=== PATIENT | female | born 1970 | race Caucasian/White ===

== ENCOUNTER 2016-11-17 06:43 | Day surgery (SDC) | payer OTHER ==
[2016-11-12 09:17] LABS: HEMATOCRIT 39.1 % (36.0-48.0); HEMOGLOBIN 12.1 g/dL (12.0-16.0)
[2016-11-12 09:31] LABS: A/G RATIO 1.2 (0.7-1.9); ALBUMIN 4.1 G/DL (3.5-5.0); ALKALINE PHOSPHATASE 96 U/L (45-117); CALCIUM, SERUM 9.4 MG/DL (8.5-10.4); CHLORIDE, SERUM 108 MMOL/L (96-112); CO2 (CARBON DIOXIDE) 30 MMOL/L (24-34); CREATININE 0.68 MG/DL (0.55-1.02); GFR AFRICAN AMERICAN 122 ML/MIN (>=60); GFR NON AFRICAN AMERICAN 106 ML/MIN (>=60); GLOBULIN 3.3 G/DL (2.5-4.1); GLUCOSE, SERUM 78 MG/DL (60-99); POTASSIUM, SERUM 4.9 MMOL/L (3.5-5.3); SGOT(AST) 18 U/L (5-40); SGPT(ALT) 26 U/L (5-65); SODIUM, SERUM 143 MMOL/L (135-148); TOTAL BILIRUBIN 0.5 MG/DL (0-1.2); TOTAL PROTEIN 7.4 G/DL (6.0-8.5)
[2016-11-12 09:35] LABS: BUN (BLOOD UREA NITROGEN) 9 MG/DL (6-23)
--- NOTE | ~2016-11-17 | OP ---
Record Of Operation [facility] [address] [place]. [address] NAME: LINA EASLEY : 72 [place]US : [place] [facility] [place] PAT#: [id number] AGE: 46 ADM/REG DATE : 11/17/16 MR#: [id number] REPORT SERV DATE: 11/17/16 DICTATED BY: RAYMUNDO PANIAGUA DATE: 11/17/16 REPORT STATUS : Draft TRANSCRIBED BY: MODL DATE: 11/17/16 DATE OF PROCEDURE: 11/17/2016 PREOPERATIVE DIAGNOSIS: Chronic cholecystitis and cholelithiasis. POSTOPERATIVE DIAGNOSIS: Chronic cholecystitis and cholelithiasis. PROCEDURE: Laparoscopic cholecystectomy (two-site). SURGEON: Raymundo Paniagua M.D. DESCRIPTION OF PROCEDURE: The patient was brought to the operating suite, placed in supine position, underwent satisfactory general endotracheal anesthesia without incident. The skin of the abdomen was scrubbed, prepped, and draped in usual sterile fashion. 0.5% Marcaine with epinephrine was utilized as supplemental local anesthesia at intended trocar sites. Initially, an infraumbilical incision was performed, dissecting through skin and subcutaneous tissue to the umbilical fascia. This was in turn grasped and elevated. A disposable Veress insufflation needle was inserted through the umbilical fascia into the peritoneal cavity. Intraperitoneal tip location ascertained using the saline hanging drop method following which CO2 was insufflated for pressures of 15 mmHg throughout the case. After adequate insufflation pressure was achieved, Veress needle was removed, a 10/11 bladed shielded trocar inserted through the umbilical fascia in the peritoneal cavity following which a rigid forward-viewing 10 mm laparoscope was inserted. Visualization of the intraabdominal parietes revealed no evidence of injury from initial insufflation or puncture. A cursory examination pelvis was normal. Incidental note was made of a normal- appearing appendix and right lower quadrant. Attention was then turned to the upper abdomen, where an additional 5 mm trocar was placed to the right of falciform ligament. Then an additional 5 mm grasping instrument was inserted next to the umbilical trocar through the umbilical fascia. The fundus and body of the gallbladder were grasped and elevated. There were no adhesions. Dissection of triangle of Calot was successful in identifying and skeletonizing the cystic duct, cystic duct common duct junction, as well as cystic artery. Critical view was obtained. Both the cystic duct and artery were controlled with multiple applications of the Weck 5 mm polymer clip system and divided. Then using spatula cautery dissection, the peritoneal attachments to the gallbladder and liver were divided. The gallbladder was removed from subhepatic space and hemostasis was assured. Next, the camera was switched to the 5 mm epigastric port. The gallbladder was grasped by its neck, drawn through the umbilical port and removed under direct visualization. It was opened and found to contain several small stones. Next, CO2 was allowed to egress from peritoneal cavity. No muscular bleeding was noted upon Record Of Operation [address] [address] NAME: LINA EASLEY : 72 [place]US : [place] [facility] [place] PAT#: [id number] AGE: 46 ADM/REG DATE : 11/17/16 MR#: [id number] REPORT SERV DATE: 11/17/16 DICTATED BY: RAYMUNDO PANIAGUA DATE: 11/17/16 REPORT STATUS : Draft TRANSCRIBED BY: MODL DATE: 11/17/16 removal of upper abdominal trocars. The umbilicus was closed with [id number] suture of 0 Vicryl. Subcutaneous tissue closed with interrupted 4-0 Vicryl, running subcuticular stitch of 4-0 Vicryl for the skin. Dermabond and skin adhesive were placed. The patient tolerated the procedure well, she was returned to PACU in stable condition. At the termination of the procedure sponge, needle, lap, and instrument counts were correct x3. ESTIMATED BLOOD LOSS: Less than 5 mL. WR/ZEN Raymundo Paniagua M.D. / [id number] CC: Jah Huang M.D.
[~2016-11-17 06:43] MED LIST: NORV5 PO; PRILOSEC40 MG PO
== END 2016-11-17 11:22 | disposition home or self-care (01) ==
LOC: SDC 06:43
PROVIDERS: Specialist
PROC: 0FT44ZZ Resection of Gallbladder, Percutaneous Endoscopic Approach (ICD-10-PCS; principal; 2016-11-17 07:45)
DX: K80.10 Calculus of gallbladder with chronic cholecystitis without obstruction (principal); K21.9 Gastro-esophageal reflux disease without esophagitis; I10 Essential (primary) hypertension; Z88.1 Allergy status to other antibiotic agents; Z91.013 Allergy to seafood; Z90.89 Acquired absence of other organs; Z90.710 Acquired absence of both cervix and uterus; Z79.899 Other long term (current) drug therapy
CPT/HCPCS: 80053; 85014; 85018; 88304; 93005; A9270-GY; J0330; J0690; J1170; J1885; J2250; J2370; J2405; J2710; J3010